=== PATIENT | male | born 1940 | race Caucasian/White ===

== ENCOUNTER 2020-12-17 05:08 | Inpatient (IN) | payer MEDICARE ==
[2020-12-10 09:34] LABS: BASOPHILS # (AUTO) 0.1 X10'3 (0-0.2); BASOPHILS % (AUTO) 0.9 % (0-1); EOSINOPHILS # (AUTO) 0.1 X10'3 (0-0.9); EOSINOPHILS % (AUTO) 2.3 % (0-6); LYMPHOCYTES # (AUTO) 1.2 X10'3 (1.1-4.8); LYMPHOCYTES % (AUTO) 20.3 % (21-51); MEAN CORPUSCULAR HEMOGLOBIN 30.7 PG (27.0-31.0); MEAN CORPUSCULAR HGB CONC 33.6 g/dL (33.0-36.5); MEAN CORPUSCULAR VOLUME 91.4 FL (78-98); MEAN PLATELET VOLUME 8.2 FL (7.4-10.4); MONOCYTES # (AUTO) 0.5 X10'3 (0-0.9); MONOCYTES % (AUTO) 8.5 % (2-12); NEUTROPHILS # (AUTO) 4.1 X10'3 (1.8-7.7); PRE OP HEMATOCRIT 35.7 % (42.0-52.0); PRE OP PLATELET COUNT 180 X10'3 (140-440); RED BLOOD COUNT 3.91 X10'6 (4.70-6.10); RED CELL DISTRIBUTION WIDTH 13.7 % (11.5-14.5)
[2020-12-10 09:54] LABS: PRE OP INR 1.3 INR; PRE OP PROTIME 13.1 SECONDS (9.0-12.0)
[2020-12-10 09:57] LABS: ALBUMIN 3.7 G/DL (3.4-5.0); ALBUMIN/GLOBULIN RATIO 1.1 (1.1-1.5); ALKALINE PHOSPHATASE 49 IU/L (46-116); BLOOD UREA NITROGEN 28 MG/DL (7-18); BUN/CREATININE RATIO 20.7 (5.4-32.0); CALCIUM 8.8 MG/DL (8.5-10.1); CHLORIDE 108 MMOL/L (99-107); CREATININE 1.35 MG/DL (0.60-1.10); PRE OP ALT 27 U/L (30-65); PRE OP ANION GAP 10 (8-16); PRE OP AST 27 U/L (10-37); PRE OP BILIRUB, TOTAL 0.4 MG/DL (0.0-1.0); PRE OP GLUCOSE 100 MG/DL (70-104); PRE OP POTASSIUM 4.6 MMOL/L (3.4-5.1); PRE OP SODIUM 142 MMOL/L (135-145); TOTAL CARBON DIOXIDE 23.6 MMOL/L (24-32); TOTAL PROTEIN 7.2 G/DL (6.4-8.2); eGFR 51 ML/MIN
[2020-12-10 10:15] LABS: CLARITY,URINE CLEAR (Clear); COLOR,URINE STRAW (Yellow); GLUCOSE, URINE NEGATIVE (Neg); KETONES,URINE NEGATIVE (Neg); LEUKOCYTE ESTERASE ,URINE NEGATIVE (Neg); NITRITES, URINE NEGATIVE (Neg); OCCULT BLOOD,URINE NEGATIVE (Neg); PH,URINE 5.5 (4.8-8.0); PROTEIN,URINE NEGATIVE (Neg); UROBILINOGEN,URINE 0.2 E.U/dL (0.2-1.0)
[2020-12-10 10:20] LABS: UA COLLECTION TYPE VOIDED
[2020-12-17] VITALS (16 sets, daily range): BP systolic 120–161; BP diastolic 53–86
[~2020-12-17] VITALS: Ht 177.8 cm; Wt 88.9 kg
[~2020-12-17 05:08] MED LIST: ACET80TA PO; ASPI-1265 PO; DOFE500C4 PO; FLO0.4C PO; GABA-530 PO; LISI40TA13 PO; METO-384 PO; POTA10TA19 PO; RIVA20TA PO; ROSU5TAB PO; ringers solution, lacted 1,000 ML IV SCH
[2020-12-17] MEDS ORDERED: DOCUMENT DATE & TIME OF BETA-BLOCKER PO ONE (05:30)
[2020-12-17] MEDS ORDERED: cefazolin/dext.iso 2gm/100ml IV ONE (05:30)
[2020-12-17] MEDS ORDERED: famotidine 20mg tablet PO ONE (05:30)
[2020-12-17] MEDS ORDERED: bacitracin 15gm ointment TP ONE (06:40)
[2020-12-17] MEDS ORDERED: MIDAZolam 1 MG/ML 5ML VIAL ONE (07:09)
[2020-12-17] MEDS ORDERED: ROPIVAcaine 0.5% (5mg/ml) 30ml vial ONE (07:09)
[2020-12-17] MEDS ORDERED: fentaNYL/PF 50MCG/1 ML 2ML syringe ONE (07:09)
[2020-12-17] MEDS ORDERED: epiNEPHrine 1 mg/ml inj ONE (07:51)
[2020-12-17] MEDS ORDERED: dexamethasone sod phosphate 4mg/ml inj. ONE (07:52)
[2020-12-17] MEDS ORDERED: ePHEDrine 50MG/ML INJ. ONE (07:52)
[2020-12-17] MEDS ORDERED: vancomycin 1,000mg inj ONE (08:12)
[2020-12-17] MEDS ORDERED: ondansetron/PF 4mg/2ml inj IV PRN ×2 (08:20→10:40)
[2020-12-17] MEDS ORDERED: ringers solution, lacted 1,000 ML IV SCH (08:20)
[2020-12-17] MEDS ORDERED: morphine 2 MG/ML inj. syringe IV PRN (08:20)
[2020-12-17] MEDS ORDERED: morphine 4 MG/ML inj SYRINge IV PRN (08:20)
[2020-12-17] MEDS ORDERED: ROPIVAcaine 0.2% (10 MG/5 ML) BOLUS INJECTION POPLITEAL PRN (08:20)
[2020-12-17] MEDS ORDERED: ROPIVAcaine 0.2%/PF PUMP/bolus 545 ML POPLITEAL SCH (08:20)
[2020-12-17] MEDS ORDERED: proCHLORperazine 10 MG/2 ml inj IV PRN (08:20)
[2020-12-17] MEDS ORDERED: meperidine/PF 25mg/ml syringe IV PRN ×3 (08:20)
[2020-12-17] MEDS ORDERED: propofol inj 20 ML IV ONE (10:08)
[2020-12-17] MEDS ORDERED: acetaminophen 325mg tablet PO PRN (10:40)
[2020-12-17] MEDS ORDERED: magnesium hydroxide 30ml (MOM) UD suspension PO PRN (10:40)
[2020-12-17] MEDS ORDERED: diphenhydrAMINE 25mg capsule PO PRN ×2 (10:40)
[2020-12-17] MEDS: potassium cl 20mEq in 1/2 NS 1,000 ML IV SCH ×2 (10:40→18:40)
[2020-12-17] MEDS ORDERED: HYDROcodone/acetaminophen 10/325mg tab PO PRN ×2 (10:40)
[2020-12-17] MEDS ORDERED: bisacodyl 10mg suppository rectal RC PRN (10:40)
--- NOTE | 2020-12-17 10:50 | NUR ---
Received from OR via , accompanied by Anesthesiologist and report given by Anesthesiolgist. patient a&ox4, denies pain, v/s wnl, neurovascular checks intact, l2 sensation. scd on, splint dressing to left foot cdi, 20g piv to shad.
--- NOTE | 2020-12-17 11:30 | NUR ---
patient a&ox4, denies pain, v/s wnl, neurovascular checks intact, l2 sensation. scd on, splint dressing to left foot cdi, 20g piv to lue. patient put on tele and taken to [address] with all belongings and hooked up to monitors in room and report given to rn who has taken over patient care.
--- NOTE | 2020-12-17 15:44 | NUR ---
pt medications were taken from bedside and sent down to pharmacy.
[2020-12-17] MEDS: gabapentin 100mg capsule PO SCH ×2 (16:00→23:58)
[2020-12-17] MEDS: ceFAZolin/D5W- 1GM premix 50 ML IV SCH ×2 (16:56→23:59)
[2020-12-17] MEDS ORDERED: magnesium Cl slow-release 64mg tablet PO PRN (18:15)
[2020-12-17] MEDS ORDERED: potassium Cl 20 mEq SR tablet PO PRN ×2 (18:15)
[2020-12-17] MEDS ORDERED: potassium Cl 40MEQ/1/2NS 520ml 520 ML IV PRN (18:15)
[2020-12-17] MEDS ORDERED: magnesium 4gm in 100ml NS 100 ML IV PRN (18:15)
[2020-12-17] MEDS: K and/or MAG REPLACEMENT MC SCH (19:35)
[2020-12-17] MEDS: lisinopril 20mg tablet PO SCH (19:59)
[2020-12-17] MEDS: DOFETILIDE 500 MCG PO SCH (20:00)
--- NOTE | 2020-12-17 20:53 | NUR ---
Problems reprioritized. Patient report given, questions answered & plan of care reviewed with Mira BHAT. Addendum: 12/17/20 at 2052 by Nora Wilder RN Amended: Links added.
[2020-12-17] MEDS ORDERED: sennosides 8.6mg tablet PO SCH (21:00)
[2020-12-18] MEDS: potassium cl 20mEq in 1/2 NS 1,000 ML IV SCH ×2 (00:01→10:40)
[2020-12-18 02:00] VITALS: BP 146/55
--- NOTE | 2020-12-18 06:29 | NUR ---
Problems reprioritized. Patient report given, questions answered & plan of care reviewed with Dhruv BHAT and Trudi BHAT.
[2020-12-18 06:39] LABS: BASOPHILS % (AUTO) 0.2 % (0-1); EOSINOPHILS % (AUTO) 0.1 % (0-6); HEMATOCRIT 33.1 % (42.0-52.0); LYMPHOCYTES # (AUTO) 0.7 X10'3 (1.1-4.8); LYMPHOCYTES % (AUTO) 5.7 % (21-51); MEAN CORPUSCULAR HEMOGLOBIN 30.2 PG (27.0-31.0); MEAN CORPUSCULAR HGB CONC 33.3 g/dL (33.0-36.5); MEAN CORPUSCULAR VOLUME 90.9 FL (78-98); MEAN PLATELET VOLUME 8.8 FL (7.4-10.4); NEUTROPHILS # (AUTO) 11.1 X10'3 (1.8-7.7); PLATELET COUNT 154 X10'3 (140-440); RED BLOOD COUNT 3.64 X10'6 (4.70-6.10); RED CELL DISTRIBUTION WIDTH 13.7 % (11.5-14.5); WHITE BLOOD COUNT 12.9 X10'3 (4.5-11.0)
[2020-12-18 07:08] LABS: ALANINE AMINOTRANSFERASE 21 U/L (12-78); ALBUMIN 2.8 G/DL (3.4-5.0); ALBUMIN/GLOBULIN RATIO 0.8 (1.1-1.5); ALKALINE PHOSPHATASE 44 IU/L (46-116); ANION GAP 7 (8-16); ASPARTATE AMINO TRANSFERASE 18 U/L (10-37); BILIRUBIN,TOTAL 0.4 MG/DL (0.1-1.0); BLOOD UREA NITROGEN 20 MG/DL (7-18); BUN/CREATININE RATIO 20.4 (5.4-32.0); CALCIUM 8.4 MG/DL (8.5-10.1); CHLORIDE 108 MMOL/L (99-107); CREATININE 0.98 MG/DL (0.60-1.10); GLUCOSE 129 MG/DL (70-104); MAGNESIUM 1.8 MG/DL (1.5-2.4); PHOSPHORUS 2.6 MG/DL (2.3-4.5); POTASSIUM 4.5 MMOL/L (3.5-5.1); SODIUM 142 MMOL/L (135-145); TOTAL CARBON DIOXIDE 27.2 MMOL/L (24-32); TOTAL PROTEIN 6.2 G/DL (6.4-8.2); eGFR 74 ML/MIN
[2020-12-18 07:53] VITALS: BP_SYST 148
[2020-12-18] MEDS: gabapentin 100mg capsule PO SCH (07:53)
[2020-12-18] MEDS: lisinopril 20mg tablet PO SCH (07:53)
[2020-12-18] MEDS: K and/or MAG REPLACEMENT MC SCH (07:54)
[2020-12-18] MEDS ORDERED: metoprolol succinate 25mg (24-HOUR) SR. Tablet PO SCH (08:00)
[2020-12-18] MEDS ORDERED: rivaroxaban 20mg tablet PO SCH (08:00)
[2020-12-18] MEDS ORDERED: tamsulosin 0.4mg capsule PO SCH (08:00)
[2020-12-18] MEDS ORDERED: aspirin 81mg tab.chew PO SCH (08:00)
[2020-12-18] MEDS ORDERED: potassium chloride 10mEq ER tablet PO SCH (08:00)
[2020-12-18] MEDS ORDERED: atorvastatin 20mg tablet PO SCH (08:00)
[2020-12-18] MEDS: DOFETILIDE 500 MCG PO SCH (11:00)
== END 2020-12-18 14:10 | disposition home health service (06) | DRG 505 ==
LOC: PAS 05:08 → EDSTATUS 07:30 → ORTHO 4S 10:37
PROVIDERS: ADMIT Podiatrist Foot & Ankle Surgery; ATTEND Podiatrist Foot & Ankle Surgery
PROC: 0QBM0ZZ Excision of Left Tarsal, Open Approach (ICD-10-PCS; 2020-12-17)
PROC: 3E0T3BZ Introduction of Anesthetic Agent into Peripheral Nerves and Plexi, Percutaneous Approach (ICD-10-PCS; 2020-12-17)
PROC: 3E0T33Z Introduction of Anti-inflammatory into Peripheral Nerves and Plexi, Percutaneous Approach (ICD-10-PCS; 2020-12-17)
PROC: 0L8P0ZZ Division of Left Lower Leg Tendon, Open Approach (ICD-10-PCS; principal; 2020-12-17 07:06)
DX: M19.072 Primary osteoarthritis, left ankle and foot (principal); M21.42 Flat foot [pes planus] (acquired), left foot; E78.5 Hyperlipidemia, unspecified; G62.9 Polyneuropathy, unspecified; I10 Essential (primary) hypertension; I25.10 Atherosclerotic heart disease of native coronary artery without angina pectoris; Z96.642 Presence of left artificial hip joint; I48.91 Unspecified atrial fibrillation; N40.0 Benign prostatic hyperplasia without lower urinary tract symptoms; H91.13 Presbycusis, bilateral; Z79.82 Long term (current) use of aspirin; Z79.01 Long term (current) use of anticoagulants; Z79.899 Other long term (current) drug therapy; Z87.891 Personal history of nicotine dependence
CPT/HCPCS: 36415; 73610; 76000; 80053; 81003; 82948; 83735; 84100; 85025; 85610; 85730; 87081; 93005; 97161; 97530; G0378; J0171; J0690; J1100; J2250; J2704; J2795; J3010; J3370; J3480; J7120

== ENCOUNTER 2021-05-20 10:39 | Day surgery (SDC) | payer MEDICARE ==
[2021-05-17 17:12] LABS: BASOPHILS # (AUTO) 0.1 X10'3 (0-0.2); BASOPHILS % (AUTO) 1.2 % (0-1); EOSINOPHILS # (AUTO) 0.3 X10'3 (0-0.9); EOSINOPHILS % (AUTO) 4.1 % (0-6); LYMPHOCYTES # (AUTO) 1.2 X10'3 (1.1-4.8); LYMPHOCYTES % (AUTO) 17.2 % (21-51); MEAN CORPUSCULAR HEMOGLOBIN 30.7 PG (27.0-31.0); MEAN CORPUSCULAR HGB CONC 33.3 g/dL (33.0-36.5); MEAN CORPUSCULAR VOLUME 92.2 FL (78-98); MEAN PLATELET VOLUME 7.8 FL (7.4-10.4); MONOCYTES # (AUTO) 0.8 X10'3 (0-0.9); MONOCYTES % (AUTO) 11.6 % (2-12); NEUTROPHILS # (AUTO) 4.6 X10'3 (1.8-7.7); NEUTROPHILS % (AUTO) 65.9 % (42-75); PRE OP HEMATOCRIT 34.8 % (42.0-52.0); PRE OP HEMOGLOBIN 11.6 g/dL (14.0-17.9); PRE OP PLATELET COUNT 210 X10'3 (140-440); RED BLOOD COUNT 3.77 X10'6 (4.70-6.10); RED CELL DISTRIBUTION WIDTH 13.6 % (11.5-14.5)
[2021-05-17 17:22] LABS: PARTIAL THROMBOPLASTIN TIME 29 SECONDS (22-32)
[2021-05-17 17:32] LABS: ALBUMIN 3.5 G/DL (3.4-5.0); ALBUMIN/GLOBULIN RATIO 0.8 (1.1-1.5); ALKALINE PHOSPHATASE 86 IU/L (46-116); BLOOD UREA NITROGEN 21 MG/DL (7-18); BUN/CREATININE RATIO 15.8 (5.4-32.0); CHLORIDE 108 MMOL/L (99-107); CREATININE 1.33 MG/DL (0.60-1.10); PRE OP ALT 40 U/L (30-65); PRE OP ANION GAP 8 (8-16); PRE OP AST 26 U/L (10-37); PRE OP BILIRUB, TOTAL 0.3 MG/DL (0.0-1.0); PRE OP GLUCOSE 103 MG/DL (70-104); PRE OP POTASSIUM 4.7 MMOL/L (3.4-5.1); PRE OP SODIUM 143 MMOL/L (135-145); TOTAL CARBON DIOXIDE 27.5 MMOL/L (24-32); TOTAL PROTEIN 7.7 G/DL (6.4-8.2); eGFR 51 ML/MIN
[~2021-05-20] VITALS: Ht 177.8 cm; Wt 86.6 kg
[2021-05-20] VITALS (19 sets, daily range): BP systolic 117–154; BP diastolic 41–66
[~2021-05-20 10:39] MED LIST changes: +ACET-75 PO; -ACET80TA PO; +DOCUMENT DATE & TIME OF BETA-BLOCKER PO ONE; +POTA-192 PO; -POTA10TA19 PO; -ROSU5TAB PO; +cefazolin/dext.iso 2gm/50ml IV ONE; +famotidine 20mg tablet PO ONE; -ringers solution, lacted 1,000 ML IV SCH
[2021-05-20] MEDS: ringers solution, lacted 1,000 ML IV SCH (11:21)
[2021-05-20] MEDS ORDERED: midazolam 1 mg/ML 2ml injection ONE (13:40)
[2021-05-20] MEDS ORDERED: fentaNYL/PF 50MCG/1 ML 2ML syringe ONE (13:40)
--- NOTE | 2021-05-20 14:31 | NUR ---
Received from OR via SURGICAL BED , accompanied by Anesthesiologist JOSE MANUEL and report given by Anesthesiolgist. PATIENT WITH 20G PIV IN LEFT UE RUNNING LR AT 100. DENIES PAIN. SPINAL LEVEL AT T10. [address] [place] IN [address]. CLEAR URINE. VSS Addendum: 05/20/21 at 1455 by Pedro Martínez RN, RN Amended: Links added.
[2021-05-20] MEDS ORDERED: diphenhydrAMINE 50 mg/ml inj ONE (14:33)
[2021-05-20] MEDS ORDERED: ringers solution, lacted 1,000 ML IV SCH (14:40)
[2021-05-20] MEDS ORDERED: morphine 2 MG/ML inj. syringe IV PRN (14:40)
[2021-05-20] MEDS ORDERED: HYDROmorphone/PF 0.2 MG/ML SYRINGE IV PRN ×2 (14:40)
[2021-05-20] MEDS ORDERED: ondansetron/PF 4mg/2ml inj IV PRN ×2 (14:40→14:45)
[2021-05-20] MEDS ORDERED: oxybutynin 5mg tablet PO PRN (14:45)
[2021-05-20] MEDS ORDERED: proCHLORperazine 10 MG/2 ml inj IV PRN (14:45)
[2021-05-20] MEDS ORDERED: acetaminophen 325mg tablet PO PRN (14:45)
[2021-05-20] MEDS ORDERED: LIDOcaine 2% 10ml TOPICAL JELLY (Urojet) TP ONE (14:45)
[2021-05-20] MEDS ORDERED: zolpidem 5mg tablet PO PRN (14:45)
[2021-05-20] MEDS ORDERED: mag hydrox/Alum hydrox/simeth 30ml oral suspension PO PRN (14:45)
[2021-05-20] MEDS ORDERED: non-formulary drug (Acetaminophen 2 TAB) PO PRN (14:50)
--- NOTE | 2021-05-20 15:51 | NUR ---
PATIENT HAS MET ALL CRITERIA FOR TRANSFER TO THE SURGICAL FLOOR. VSS. DRESSINGS INTACT. BED LOW, CALL LIGHT PRESENT AND 2 RAILS UP. RN PRESENT TO ACCEPT CARE OF PATIENT AND REPORT HAS BEEN CALLED. ALL QUESTIONS ANSWERED TO ACCEPTING [facility]. URINE STILL CLEAR. Addendum: 05/20/21 at 1600 by Pedro Moreira - HOME [facility] Amended: Links added.
[2021-05-20] MEDS: ceFAZolin inj. 1,000 MG in dextrose 5%-water 50ml 50 ML IV SCH (17:11)
[2021-05-20] MEDS: gabapentin 100mg capsule PO SCH (17:11)
[2021-05-20] MEDS: potassium cl 20mEq in 1/2 NS 1,000 ML IV SCH (17:12)
--- NOTE | 2021-05-20 18:57 | NUR ---
Problems reprioritized. Patient report given, questions answered & plan of care reviewed with LIZ BHAT.
[2021-05-20] MEDS: DOFETILIDE 500 MCG PO SCH (20:00)
[2021-05-20] MEDS: docusate sod 100mg capsule PO SCH (21:34)
[2021-05-20] MEDS: lisinopril 20mg tablet PO SCH (21:35)
[2021-05-21] VITALS: BP 135/63
[2021-05-21] MEDS: gabapentin 100mg capsule PO SCH ×2 (00:48→09:31)
[2021-05-21] MEDS: potassium cl 20mEq in 1/2 NS 1,000 ML IV SCH ×2 (00:48→09:35)
[2021-05-21] MEDS: ceFAZolin inj. 1,000 MG in dextrose 5%-water 50ml 50 ML IV SCH ×2 (00:56→09:28)
--- NOTE | 2021-05-21 05:36 | NUR ---
Pt dinner record was not filled out and tray was taken.
[2021-05-21 06:29] LABS: BASOPHILS # (AUTO) 0.1 X10'3 (0-0.2); BASOPHILS % (AUTO) 0.8 % (0-1); EOSINOPHILS # (AUTO) 0.2 X10'3 (0-0.9); EOSINOPHILS % (AUTO) 2.6 % (0-6); HEMATOCRIT 32.7 % (42.0-52.0); HEMOGLOBIN 11.1 g/dl (14.0-17.9); LYMPHOCYTES # (AUTO) 0.7 X10'3 (1.1-4.8); LYMPHOCYTES % (AUTO) 8.4 % (21-51); MEAN CORPUSCULAR HEMOGLOBIN 31.1 PG (27.0-31.0); MEAN CORPUSCULAR VOLUME 91.4 FL (78-98); MONOCYTES # (AUTO) 0.6 X10'3 (0-0.9); MONOCYTES % (AUTO) 8.2 % (2-12); NEUTROPHILS # (AUTO) 6.2 X10'3 (1.8-7.7); PLATELET COUNT 178 X10'3 (140-440); RED BLOOD COUNT 3.58 X10'6 (4.70-6.10); RED CELL DISTRIBUTION WIDTH 13.2 % (11.5-14.5); WHITE BLOOD COUNT 7.8 X10'3 (4.5-11.0)
[2021-05-21 06:38] LABS: ALBUMIN 2.9 G/DL (3.4-5.0); ANION GAP 7 (8-16); BLOOD UREA NITROGEN 13 MG/DL (7-18); BUN/CREATININE RATIO 13.5 (5.4-32.0); CALCIUM 8.7 MG/DL (8.5-10.1); CHLORIDE 107 MMOL/L (99-107); CREATININE 0.96 MG/DL (0.60-1.10); GLUCOSE 95 MG/DL (70-104); POTASSIUM 4.9 MMOL/L (3.5-5.1); SODIUM 139 MMOL/L (135-145); TOTAL CARBON DIOXIDE 25.4 MMOL/L (24-32); eGFR 75 ML/MIN
--- NOTE | 2021-05-21 07:25 | NUR ---
Patient in room [facility]. I have received report from daniel BHAT and had the opportunity to ask questions and assume patient care.
--- NOTE | 2021-05-21 07:25 | NUR ---
Problems reprioritized. Patient report given, questions answered & plan of care reviewed with [facility].
[2021-05-21] MEDS ORDERED: pantoprazole 40mg Tablet.DR PO SCH (07:30)
[2021-05-21] MEDS ORDERED: tamsulosin 0.4mg capsule PO SCH (08:00)
[2021-05-21] MEDS: DOFETILIDE 500 MCG PO SCH (08:00)
[2021-05-21] MEDS ORDERED: potassium chloride 10mEq ER tablet PO SCH (08:00)
[2021-05-21] MEDS ORDERED: metoprolol succinate 25mg (24-HOUR) SR. Tablet PO SCH (08:00)
[2021-05-21] MEDS: docusate sod 100mg capsule PO SCH (09:31)
[2021-05-21 09:33] VITALS: BP_SYST 142
[2021-05-21] MEDS: lisinopril 20mg tablet PO SCH (09:33)
[2021-05-21] MEDS ORDERED: DOCU-148 PO (09:44)
[2021-05-21] MEDS: ringers solution, lacted 1,000 ML IV SCH (10:11)
== END 2021-05-21 13:00 | disposition home or self-care (01) ==
LOC: PAS 10:39 → EDBD 13:00 → SUR 3N 14:47 → PAS 05-21 13:00
PROVIDERS: ATTEND Urology
DX: N40.1 Benign prostatic hyperplasia with lower urinary tract symptoms (principal); N13.8 Other obstructive and reflux uropathy; N32.89 Other specified disorders of bladder; I10 Essential (primary) hypertension; M19.90 Unspecified osteoarthritis, unspecified site; I48.91 Unspecified atrial fibrillation; Z96.641 Presence of right artificial hip joint; Z98.890 Other specified postprocedural states; Z87.891 Personal history of nicotine dependence; Z79.899 Other long term (current) drug therapy; Z79.82 Long term (current) use of aspirin; Z87.440 Personal history of urinary (tract) infections; Z20.822 Contact with and (suspected) exposure to COVID-19
CPT/HCPCS: 36415; 52601; 71046; 80048; 80053; 82948; 85025; 85610; 85730; 86885; 86900; 86901; 87081; 87635; C9803; J0690; J1200; J2250; J3010; J3480; J7030; J7060; J7120; Z7506; Z7512; 88305; 88341; 88342; A4346; A4355; A4615; G0378

== ENCOUNTER 2022-08-11 06:02 | Day surgery (SDC) | payer MEDICARE ==
[~2022-08-11] VITALS: Ht 177.8 cm; Wt 81.8 kg
[~2022-08-11 06:02] MED LIST changes: -ASPI-1265 PO; +DOCU-148 PO; -DOCUMENT DATE & TIME OF BETA-BLOCKER PO ONE; -RIVA20TA PO; -cefazolin/dext.iso 2gm/50ml IV ONE; -famotidine 20mg tablet PO ONE
[2022-08-11] MEDS ORDERED: ceFAZolin inj. 2,000 MG in normal saline soln 50 ML IV ONE (06:25)
[2022-08-11] MEDS ORDERED: normal saline 1000ml 1,000 ML IV PRN (06:25)
[2022-08-11] MEDS ORDERED: ceFAZolin inj. 2,000 MG in dextrose 5%-water 100 ML IV ONE (06:25)
[2022-08-11 06:29] VITALS: BP 129/61
[2022-08-11] MEDS ORDERED: GABAPENTIN PO (06:31)
[2022-08-11] MEDS ORDERED: RIVA10TA PO (06:31)
[2022-08-11] MEDS ORDERED: FLUT16SP11 BOTHNARES (06:31)
[2022-08-11 07:03] LABS: BASOPHILS % (AUTO) 0.8 % (0-1); EOSINOPHILS # (AUTO) 0.1 X10'3 (0-0.9); EOSINOPHILS % (AUTO) 2.5 % (0-6); HEMOGLOBIN 11.6 g/dl (14.0-17.9); LYMPHOCYTES # (AUTO) 0.9 X10'3 (1.1-4.8); LYMPHOCYTES % (AUTO) 15.8 % (21-51); MEAN CORPUSCULAR HEMOGLOBIN 30.6 PG (27.0-31.0); MEAN CORPUSCULAR HGB CONC 33.3 g/dL (33.0-36.5); MEAN PLATELET VOLUME 7.6 FL (7.4-10.4); MONOCYTES # (AUTO) 0.6 X10'3 (0-0.9); MONOCYTES % (AUTO) 10.2 % (2-12); NEUTROPHILS # (AUTO) 3.9 X10'3 (1.8-7.7); NEUTROPHILS % (AUTO) 70.7 % (42-75); PLATELET COUNT 200 X10'3 (140-440); RED CELL DISTRIBUTION WIDTH 14.2 % (11.5-14.5); WHITE BLOOD COUNT 5.5 X10'3 (4.5-11.0)
[2022-08-11] MEDS ORDERED: midazolam 1 mg/ML 2ml injection ONE ×2 (08:36→09:22)
[2022-08-11] MEDS ORDERED: diphenhydrAMINE 50 mg/ml inj ONE (08:36)
[2022-08-11] MEDS ORDERED: iohexol 300mg/ml 100ml inj. ONE (08:37)
[2022-08-11] MEDS ORDERED: fentaNYL/PF 50MCG/1 ML 2ML syringe ONE (08:37)
[2022-08-11 09:50] VITALS: BP 149/58
[2022-08-11 10:05] VITALS: BP 125/56
[2022-08-11 10:20] VITALS: BP 126/72
[2022-08-11 10:49] VITALS: BP 149/51
[2022-08-11 11:04] VITALS: BP 135/54
== END 2022-08-11 11:30 | disposition home or self-care (01) ==
LOC: SSTAY O 06:02
PROVIDERS: ATTEND Radiology Vascular & Interventional Radiology
DX: S32.020A Wedge compression fracture of second lumbar vertebra, initial encounter for closed fracture (principal); M54.50 Low back pain, unspecified; M81.0 Age-related osteoporosis without current pathological fracture; Z96.642 Presence of left artificial hip joint; Z98.890 Other specified postprocedural states; Z88.5 Allergy status to narcotic agent; Z88.8 Allergy status to other drugs, medicaments and biological substances; Z79.899 Other long term (current) drug therapy; W11.XXXA Fall on and from ladder, initial encounter; Y93.89 Activity, other specified; Y92.89 Other specified places as the place of occurrence of the external cause; Y99.8 Other external cause status
CPT/HCPCS: 22514; 36415; 85025; 85610; 99152; 99153; C1713; J1200; J2250; J3010; J7030; Q9967; A4615; A4620